=== PATIENT | male | born 1975 | race Caucasian/White ===

== ENCOUNTER 2017-01-09 16:24 | Emergency (ER) | payer BC, OTHER ==
[2017-01-09 16:52] VITALS: BP 117/57
[2017-01-09] MEDS ORDERED: Ipratropium 0.5MG/2.5ML NEB* 0.5 MG/2.5 ML NEB.SOLN INH ONE (17:26)
[2017-01-09] MEDS ORDERED: Albuterol 2.5 MG/3 ML NEB.SOL* (0.083%) INH ONE (17:26)
[2017-01-09] MEDS ORDERED: Azithromycin TAB* 250 MG PO ONE (17:27)
--- NOTE | 2017-01-09 17:34 | UC ---
Respiratory Complaint HPI - HPI Summary HPI Summary: pt c/o URI symptoms of nasal congestion, Cough, SOB, and wheezing X 3 days. Pt has history of asthma - History of Current Complaint Chief Complaint: UCGeneralIllness Stated Complaint: SINUS/CHEST CONGESTION SHORTNESS BREATH Time Seen by Provider: 01/09/17 17:05 Hx Obtained From: Patient Onset/Duration: Gradual Onset, Lasting Days Timing: Constant Severity Initially: Mild Severity Currently: Mild Character: Cough: Nonproductive Aggravating Factors: Exertion, Deep Breaths, Recumbent Position Alleviating Factors: Bronchodilator Associated Signs And Symptoms: Positive: Wheezing, URI, Nasal Congestion - Risk Factors Pulmonary Embolism Risk Factors: Smoking Cardiac Risk Factors: Smoking - Allergies/Home Medications Allergies/Adverse Reactions: Allergies Allergy/AdvReac Type Severity Reaction Status Date / Time No Known Allergies Allergy Verified 01/09/17 16:52 Home Medications: Home Medications traMADol TAB* [Ultram*] 50 mg PO Q6HR PRN 01/09/17 [History Confirmed 01/09/17] PMH/Surg Hx/FS Hx/Imm Hx Previously Healthy: Yes Endocrine History Of: Denies: Diabetes, Thyroid Disease Cardiovascular History Of: Denies: Cardiac Disorders, Hypertension Respiratory History Of: Reports: Asthma, Bronchitis, Pneumonia Denies: COPD GI/ History Of: Denies: Ulcer - Surgical History Surgical History: None - Family History Known Family History: Positive: Hypertension, Diabetes, Respiratory Disease - Social History Lives: Alone Alcohol Use: Rare Substance Use Type: None Smoking Status (MU): Light Every Day Tobacco Smoker Type: Cigarettes Amount Used/How Often: 1/2 ppd Length of Time of Smoking/Using Tobacco: 15 years Household Exposure Type: Cigarettes Review of Systems Constitutional: Chills, Fatigue Skin: Negative Eyes: Negative ENT: Sore Throat, Other - nasal congestion, SOB, wheezing Respiratory: Shortness Of Breath, Cough Cardiovascular: Negative Gastrointestinal: Negative Genitourinary: Negative Motor: Negative Neurovascular: Negative Musculoskeletal: Negative Neurological: Negative Psychological: Negative All Other Systems Reviewed And Are Negative: Yes Physical Exam Triage Information Reviewed: Yes Appearance: Ill-Appearing, Obese Vital Signs: Initial Vital Signs Temp 98.6 F 01/09/17 16:47 Pulse 95 01/09/17 16:47 Resp 20 01/09/17 16:47 BP 117/57 01/09/17 16:47 Pulse Ox 94 01/09/17 16:47 Vital Signs Reviewed: Yes ENT Exam: Other ENT: Positive: Nasal congestion Dental Exam: Other Dental: Positive: Gross Decay/Caries @ - all teeth Neck exam: Normal Respiratory Exam: Other Respiratory: Positive: Wheezing Cardiovascular Exam: Normal Musculoskeletal Exam: Normal Neurological Exam: Normal Psychological Exam: Normal Skin Exam: Normal Diagnostic Evaluation - Laboratory O2 Sat by Pulse Oximetry: 94 Respiratory Course/Dx - Differential Dx/Diagnosis Differential Diagnosis/HQI/PQRI: Bronchitis, Exacerbation Of COPD, Influenza, Other - pneumonia Provider Diagnoses: bronchitis. exacerbation of asthma Discharge - Discharge Plan Condition: Stable Disposition: HOME Prescriptions: Azithromycin TAB* [Zithromax TAB (Z-SAM) 250 mg #6 tabs] 250 mg PO DAILY #4 tab predniSONE TAB* [Deltasone TAB*] 30 mg PO DAILY #12 tab Patient Education Materials: Acute Bronchitis (ED) Forms: *Work Release Referrals: Non Staff,Doctor [Primary Care Provider] - [facility] [place] [facility] [Outside]
== END 2017-01-09 18:18 | disposition home or self-care (01) ==
LOC: UCCORT 16:24
DX: J40 Bronchitis, not specified as acute or chronic (principal); E66.9 Obesity, unspecified; F17.210 Nicotine dependence, cigarettes, uncomplicated
CPT/HCPCS: 99212; A9270-GY; G0463; J7644

== ENCOUNTER 2018-01-24 21:04 | Emergency (ER) | payer SELFPAY ==
[2018-01-24 21:33] VITALS: BP 110/67
[2018-01-24] MEDS ORDERED: predniSONE TAB* 20 MG PO ONE (21:46)
--- NOTE | 2018-02-01 07:09 | UC ---
Ear Complaint HPI - HPI Summary HPI Summary: left ear pain x 3 days + nasal congestion , sinus pain and pressure , no cough , no fever, no chills - History of Current Complaint Chief Complaint: UCGeneralIllness Stated Complaint: SINUS PRESSURE Time Seen by Provider: 01/24/18 21:26 Hx Obtained From: Patient Onset/Duration: Gradual Onset, Lasting Days - 3, Still Present Severity Initially: Moderate Severity Currently: Moderate Pain Intensity: 3 Pain Scale Used: 0-10 Numeric Aggravating Factors: Nothing Alleviating Factors: Nothing Associated Signs/Symptoms: Positive: URI Symptoms. Negative: Hearing Loss, Foreign Body Sensation, Trauma to Ear, Swelling @ - Allergies/Home Medications Allergies/Adverse Reactions: Allergies Allergy/AdvReac Type Severity Reaction Status Date / Time No Known Allergies Allergy Verified 01/24/18 21:32 PMH/Surg Hx/FS Hx/Imm Hx Previously Healthy: Yes - Surgical History Surgical History: None - Family History Known Family History: Positive: Hypertension, Diabetes, Respiratory Disease - Social History Alcohol Use: Rare Substance Use Type: None Smoking Status (MU): Light Every Day Tobacco Smoker Type: Cigarettes Amount Used/How Often: 1/2 ppd Length of Time of Smoking/Using Tobacco: 15 years Household Exposure Type: Cigarettes Review of Systems Constitutional: Negative Skin: Negative Eyes: Negative ENT: Nasal Discharge, Sinus Congestion Respiratory: Negative Cardiovascular: Negative Gastrointestinal: Negative Is Patient Immunocompromised?: No All Other Systems Reviewed And Are Negative: Yes Physical Exam Triage Information Reviewed: Yes Appearance: Well-Appearing, No Pain Distress, Well-Nourished Vital Signs: Initial Vital Signs Temp 99.6 F 01/24/18 21:29 Pulse 86 01/24/18 21:29 Resp 18 01/24/18 21:29 BP 110/67 01/24/18 21:29 Pulse Ox 95 01/24/18 21:29 Vital Signs Reviewed: Yes Eye Exam: Normal Eyes: Positive: Conjunctiva Clear ENT: Positive: Normal ENT inspection, Hearing grossly normal, Pharynx normal, Nasal congestion, TMs normal. Negative: Pharyngeal erythema, TM bulging, TM dull, TM red Neck: Positive: Supple, Nontender, No Lymphadenopathy Respiratory: Positive: Chest non-tender, Lungs clear, Normal breath sounds, No respiratory distress Cardiovascular: Positive: RRR, No Murmur, Pulses Normal Skin Exam: Normal Ear Complaint Course/Dx - Differential Dx/Diagnosis Provider Diagnoses: otalgia Discharge - Discharge Plan Condition: Stable Disposition: HOME Prescriptions: Fluticasone NASAL SPRAY 50MCG* [Flonase NASAL SPRAY 50MCG*] 2 spray BOTH NARES DAILY #1 btl predniSONE TAB* [Deltasone TAB*] 40 mg PO DAILY #10 tab Patient Education Materials: Earache (ED) Referrals: Nikky Lozano MD [Primary Care Provider] - 7 Days
== END 2018-01-24 21:55 | disposition home or self-care (01) ==
LOC: UCCORT 21:04
DX: H92.02 Otalgia, left ear (principal); R09.81 Nasal congestion; F17.210 Nicotine dependence, cigarettes, uncomplicated
CPT/HCPCS: 99212; G0463; J7512

== ENCOUNTER 2019-08-19 11:45 | Emergency (ER) | payer BC ==
[2019-08-19 12:27] VITALS: BP 116/74
--- NOTE | 2019-08-19 12:45 | UC ---
General HPI - HPI Summary HPI Summary: 1. awoke this am with sinus congestion, ear pressure and L eye red and crusted shut. no contact lens use or eye pain or visual loss. no fever. + cough and wheezing. hx asthma but ran out of Advair because not medical coverage which he now has again. needs more albuterol. 2. pt advised that he was exposed to Trich. he denies genital lesions, urinary discomfort, genital discharge/pain/swelling. - History of Current Complaint Chief Complaint: UCRespiratory Stated Complaint: SINUSES Time Seen by Provider: 08/19/19 12:34 Hx Obtained From: Patient Pain Intensity: 0 Associated Signs & Symptoms: Negative: Chest Pain, Fever - Allergy/Home Medications Allergies/Adverse Reactions: Allergies Allergy/AdvReac Type Severity Reaction Status Date / Time No Known Allergies Allergy Verified 08/19/19 12:20 PMH/Surg Hx/FS Hx/Imm Hx Respiratory History: Asthma - Surgical History Surgical History: None - Family History Known Family History: Positive: Hypertension, Diabetes, Respiratory Disease - Social History Alcohol Use: Rare Substance Use Type: None Smoking Status (MU): Light Every Day Tobacco Smoker Type: Cigarettes Amount Used/How Often: 1/2 ppd Length of Time of Smoking/Using Tobacco: 15 years Household Exposure Type: Cigarettes Review of Systems All Other Systems Reviewed And Are Negative: No Constitutional: Negative: Fever, Chills Eyes: Positive: Drainage, Eye Redness. Negative: Blurred Vision, Diplopia, Photophobia ENT: Positive: Sinus Congestion. Negative: Sore Throat, Sinus Pain/Tenderness Respiratory: Positive: Cough. Negative: Shortness Of Breath Cardiovascular: Negative: Palpitations, Chest Pain Gastrointestinal: Negative: Abdominal Pain Genitourinary: Negative: Dysuria, Hematuria, Frequency, Urgency, Vaginal/Penile Burning, Vaginal/Penile Itching, Vaginal/Penile Discharge, Vaginal/Penile Pain, Vaginal/Penile Tenderness, Ulceration/Lesion Physical Exam Triage Information Reviewed: Yes Appearance: Well-Appearing Vital Signs: Initial Vital Signs Temp 98.5 F 08/19/19 12:21 Pulse 73 08/19/19 12:21 Resp 16 08/19/19 12:21 BP 116/74 08/19/19 12:21 Pulse Ox 98 08/19/19 12:21 Vital Signs Reviewed: Yes Eyes: Positive: Other: - No auricular adenopathy, periorbital edema or rash. conjunctiva OD clear, OS red with yellow crusting. PERRL, EOMI. AC's clear. ENT: Positive: Pharynx normal, Nasal congestion, Nasal drainage - clear, TM dull - x2.. Negative: TM bulging, TM red Neck: Positive: Supple, Nontender, No Lymphadenopathy Respiratory: Positive: No respiratory distress, Decreased breath sounds, Wheezing. Negative: Crackles, Rhonchi Cardiovascular: Positive: RRR, No Murmur Abdomen Description: Positive: Nontender Bowel Sounds: Positive: Present Neurological: Positive: Alert Psychological: Positive: Age Appropriate Behavior Skin Exam: Normal Skin: Negative: Rashes Course/Dx - Differential Dx - Multi-Symptom Differential Diagnoses: Other - will restart pt's Advair and tx for asthma flare plus pink eye. will tx for presumptive trich with cultures pending. - Diagnoses Provider Diagnosis: Exposure to STD, URI (upper respiratory infection), Conjunctivitis, Asthma Discharge ED - Sign-Out/Discharge Documenting (check all that apply): Patient Departure All imaging exams completed and their final reports reviewed: No Studies - Discharge Plan Condition: Stable Disposition: HOME Prescriptions: Albuterol HFA INHALER* [Ventolin HFA Inhaler*] 2 puff INH Q6H #1 mdi Fluticasone-Salmeterol 500-50* [Advair Diskus 500-50*] 1 puff INH BID #1 diskus metroNIDAZOLE [Flagyl] 500 mg PO BID 7 Days #14 tablet Polymyx/Trimethoprim OPTH* [Polytrim OPHTH*] 1 drop LEFT EYE Q3H 7 Days #1 btl predniSONE TAB* [Deltasone 20 MG TAB*] 40 mg PO DAILY 5 Days #10 tab Patient Education Materials: Sexually Transmitted Diseases (ED), Upper Respiratory Infection (DC), Conjunctivitis (ED) Forms: *Work Release Referrals: KEEGAN Jain [Medical Doctor] - 7 Days - Billing Disposition and Condition Condition: STABLE Disposition: Home
[2019-08-20 13:46] LABS: Chlamydia trachomatis NAA Negative (Negative); Neisseria gonorrhoeae (GC) NAA Negative (Negative)
[2019-08-22 19:15] LABS: Trichomonas vaginalis SOURCE: Urine (Male Patient)
--- NOTE | 2019-08-23 07:26 | UC ---
- Progress Note Progress Note: Treated with metronidazole 500mg twice daily x 7 days; please advise that Trich was positive. Please call to see if he has any persistent symptoms--alternate treatment for metronidazole failure would be tinidazole 2 grams x a single dose. Course/Dx - Diagnoses Provider Diagnoses: Exposure to STD, URI (upper respiratory infection), Conjunctivitis, Asthma Discharge ED - Sign-Out/Discharge Documenting (check all that apply): Patient Departure All imaging exams completed and their final reports reviewed: No Studies - Discharge Plan Condition: Stable Disposition: HOME Prescriptions: Albuterol HFA INHALER* [Ventolin HFA Inhaler*] 2 puff INH Q6H #1 mdi Fluticasone-Salmeterol 500-50* [Advair Diskus 500-50*] 1 puff INH BID #1 diskus metroNIDAZOLE [Flagyl] 500 mg PO BID 7 Days #14 tablet Polymyx/Trimethoprim OPTH* [Polytrim OPHTH*] 1 drop LEFT EYE Q3H 7 Days #1 btl predniSONE TAB* [Deltasone 20 MG TAB*] 40 mg PO DAILY 5 Days #10 tab Patient Education Materials: Sexually Transmitted Diseases (ED), Upper Respiratory Infection (DC), Conjunctivitis (ED) Forms: *Work Release Referrals: KEEGAN Jain [Medical Doctor] - 7 Days - Billing Disposition and Condition Condition: STABLE Disposition: Home
== END 2019-08-19 13:01 | disposition home or self-care (01) ==
LOC: UCCORT 11:45
DX: Z20.2 Contact with and (suspected) exposure to infections with a predominantly sexual mode of transmission (principal); J06.9 Acute upper respiratory infection, unspecified; H10.9 Unspecified conjunctivitis; J45.909 Unspecified asthma, uncomplicated; F17.210 Nicotine dependence, cigarettes, uncomplicated
CPT/HCPCS: 87491; 87591; 87661; 99212; G0463

== ENCOUNTER 2019-11-18 21:51 | Emergency (ER) | payer BC ==
[2019-11-18 22:16] VITALS: BP 113/66
--- NOTE | 2019-11-18 22:26 | ED ---
Lower Extremity - HPI Summary HPI Summary: 43 yr old male with the complaint of left calf pain, 7/10, swollen calf and lower extremity, SOB. He fell 3 weeks ago and has had progressive pain and some swelling in the left calf since. he fell again today landing on the left lateral femur. He can bear weight and walk. He works driving a flatbed tow truck. He has had redness to the foreskin of the penis as well. He has had sinus drainage and post nasal drip as well. the patient states he has not had a primary doctor appointment in a long time. - History of Current Complaint Chief Complaint: UCGeneralIllness Stated Complaint: COUGH, SINUS COMPLAINT, LT LEG COMPLAINT, PERSONAL Time Seen by Provider: 11/18/19 22:05 Pain Intensity: 6 - Allergies/Home Medications Allergies/Adverse Reactions: Allergies Allergy/AdvReac Type Severity Reaction Status Date / Time No Known Allergies Allergy Verified 11/18/19 22:04 Home Medications: Home Medications Albuterol HFA INHALER* [Ventolin HFA Inhaler*] 1 - 2 puff INH Q4H PRN 11/18/19 [ History Confirmed 11/18/19] Fluticasone-Salmeterol 250-50* [Advair Diskus 250-50*] 1 puff INH BID 11/18/19 [ History Confirmed 11/18/19] PMH/Surg Hx/FS Hx/Imm Hx Endocrine/Hematology History: Denies: Hx Diabetes, Hx Thyroid Disease Cardiovascular History: Denies: Hx Hypertension Respiratory History: Reports: Hx Asthma, Hx Pneumonia Denies: Hx Chronic Obstructive Pulmonary Disease (COPD) GI History: Denies: Hx Ulcer Infectious Disease History: No Infectious Disease History: Denies: Hx Clostridium Difficile, Hx Hepatitis, Hx Human Immunodeficiency Virus (HIV), Hx of Known/Suspected MRSA, Hx Shingles, Hx Tuberculosis, Hx Known/ Suspected VRE, Hx Known/Suspected VRSA, History Other Infectious Disease, Traveled Outside the [place] in Last 30 Days - Family History Known Family History: Positive: Hypertension, Diabetes, Respiratory Disease - Social History Occupation: Employed Full-time Alcohol Use: Rare Substance Use Type: Reports: None Smoking Status (MU): Light Every Day Tobacco Smoker Type: Cigarettes Amount Used/How Often: 1/2 ppd Length of Time of Smoking/Using Tobacco: 15 years Review of Systems Positive: Fever Positive: Nasal Discharge Positive: Shortness Of Breath, Cough Positive: Other - left calf pain All Other Systems Reviewed And Are Negative: Yes Physical Exam Triage Information Reviewed: Yes Vital Signs On Initial Exam: Initial Vitals Temp Pulse Resp BP Pulse Ox 100 F 101 24 113/66 96 11/18/19 22:08 11/18/19 22:08 11/18/19 22:08 11/18/19 22:08 11/18/19 22:08 Vital Signs Reviewed: Yes Appearance: Positive: Well-Appearing, No Pain Distress Skin: Positive: Warm, Skin Color Reflects Adequate Perfusion Head/Face: Positive: Normal Head/Face Inspection Eyes: Positive: EOMI ENT: Positive: Pharynx normal, Nasal congestion, TMs normal Neck: Positive: Nontender Respiratory/Lung Sounds: Positive: Clear to Auscultation, Breath Sounds Present Cardiovascular: Positive: Tachycardia. Negative: Murmur Abdomen Description: Positive: Nontender Male Genital Exam: Positive: Other - ballanitis foreskin of the penis. Musculoskeletal: Positive: Other - left calf with tenderness and STS. He has no gross deformity of the knee or the left femur and he walks and bears weight well. Neurological: Positive: Sensory/Motor Intact, Alert, Oriented to Person Place, Time, CN Intact II-III, Speech Normal Psychiatric: Positive: Normal Diagnostics - Vital Signs Vital Signs Temp Pulse Resp BP Pulse Ox 11/18/19 22:08 100 F 101 24 113/66 96 - Laboratory Lab Statement: Any lab studies that have been ordered have been reviewed, and results considered in the medical decision making process. Lower Extremity Course/Dx - Course Course Of Treatment: I have discussed this case with Sammi Hidalgo NP in [facility]. She is aware of the patient SOB, Left calf and leg pain, fever, tachycardia, and the ballanitis. They will evaluate the patient further. The patient signed out AMA refusing the ambulance transfer. - Diagnoses Provider Diagnoses: Shortness of breath, Balanitis, Pain of left calf, Left hip pain, Tachycardia Discharge ED - Sign-Out/Discharge Documenting (check all that apply): Patient Departure All imaging exams completed and their final reports reviewed: No Studies - Discharge Plan Condition: Good Disposition: AGAINST MEDICAL ADVICE Referrals: No Primary Care Phys,NOPCP [Primary Care Provider] - - Billing Disposition and Condition Condition: GOOD Disposition: Against Medical Advice
== END 2019-11-18 22:15 | disposition left against medical advice (07) ==
LOC: UCCORT 21:51
DX: M79.662 Pain in left lower leg (principal); R06.02 Shortness of breath; N48.1 Balanitis; M25.552 Pain in left hip; R00.2 Palpitations; R09.81 Nasal congestion; R05 Cough; F17.210 Nicotine dependence, cigarettes, uncomplicated
CPT/HCPCS: 99212; G0463